=== PATIENT | male | born 1960 | race African-American/Black ===

== ENCOUNTER 2025-06-21 09:22 | Outpatient (CLI) | payer MEDICARE, MEDICAID | END 2025-06-21 09:23 | disposition home or self-care (01) | LOC: CSHWCC 09:22 | PROVIDERS: ATTEND Nurse Practitioner Family | DX: L89.616 Pressure-induced deep tissue damage of right heel (principal); E11.622 Type 2 diabetes mellitus with other skin ulcer; L97.311 Non-pressure chronic ulcer of right ankle limited to breakdown of skin; L97.212 Non-pressure chronic ulcer of right calf with fat layer exposed | CPT/HCPCS: 11042; 99215; G0463 ==

== ENCOUNTER 2025-06-29 10:32 | Outpatient (CLI) | payer MEDICARE, MEDICAID | END 2025-06-29 10:33 | disposition home or self-care (01) | LOC: CSHWCC 10:32 | PROVIDERS: ATTEND Nurse Practitioner Family | DX: L89.616 Pressure-induced deep tissue damage of right heel (principal); E11.622 Type 2 diabetes mellitus with other skin ulcer; L97.311 Non-pressure chronic ulcer of right ankle limited to breakdown of skin; L97.212 Non-pressure chronic ulcer of right calf with fat layer exposed ==

== ENCOUNTER 2025-07-04 12:39 | Outpatient (CLI) | payer MEDICARE, MEDICAID | END 2025-07-04 12:40 | disposition home or self-care (01) | LOC: CSHWCC 12:39 | PROVIDERS: ATTEND Nurse Practitioner Family | DX: L89.616 Pressure-induced deep tissue damage of right heel (principal); E11.622 Type 2 diabetes mellitus with other skin ulcer; L97.311 Non-pressure chronic ulcer of right ankle limited to breakdown of skin; L97.212 Non-pressure chronic ulcer of right calf with fat layer exposed | CPT/HCPCS: 11042; G0463; 99212 ==

== ENCOUNTER 2025-07-13 09:42 | Outpatient (CLI) | payer MEDICARE, MEDICAID | END 2025-07-13 09:43 | disposition home or self-care (01) | LOC: CSHWCC 09:42 | PROVIDERS: ATTEND Nurse Practitioner Family | DX: L89.616 Pressure-induced deep tissue damage of right heel (principal); E11.622 Type 2 diabetes mellitus with other skin ulcer; L97.311 Non-pressure chronic ulcer of right ankle limited to breakdown of skin; L97.212 Non-pressure chronic ulcer of right calf with fat layer exposed | CPT/HCPCS: 11042; G0463; 99213 ==